=== PATIENT | female | born 1995 | race Caucasian/White ===

== ENCOUNTER → 2019-12-14 12:11 | Outpatient (CLI) | payer OTHER, SELFPAY ==
--- NOTE | 2019-12-14 12:13 | DI.RAD.S_ITS ---
PROCEDURE: XR CHEST 2V INDICATIONS: cough r/o pneumonia TECHNIQUE: 2 views of the chest were acquired. COMPARISON: None. FINDINGS: Surgical changes and devices: None. Lungs and pleura: Lungs are clear. No pleural effusions or pneumothorax. Mediastinum: Mediastinal contours are normal. Heart size is normal. Bones and chest wall: No suspicious bony abnormalities. Soft tissues appear unremarkable. IMPRESSION: Normal for age, source of current cuff symptoms is not seen. Dictated by: Xiang Priest M.D. on 12/14/2019 at 12:44 Approved by: Xiang Priest M.D. on 12/14/2019 at 12:44
== END ==
PROVIDERS: Referring Provider Physician Assistant; Visit Provider Physician Assistant
DX: R05 Cough (principal); J40 Bronchitis, not specified as acute or chronic
CPT/HCPCS: 71046